=== PATIENT | female | born 1935 | race Caucasian/White ===

== ENCOUNTER 2022-10-05 17:11 | Outpatient (CLI) | payer MEDICARE, SELFPAY ==
[2022-10-05 17:06] LABS: Abs Immature Grans 4.55 10^3/uL (0.0-0.06); HCT 28.7 % (36.0-46.0); HGB 9.1 g/dL (11.2-15.7); MCHC 31.7 % (32.0-36.0); MCV 85 fL (80-95); MPV 9.9 fL (8.0-11.0); Nucleated RBC 0.2 % (0.0-0.3); Platelet Count 576 10^3/uL (130-400); RBC 3.37 10^6/uL (3.93-5.22); RDW 20.8 % (11.7-14.6); RDW-SD 60.7 fL
[2022-10-05 17:31] LABS: WBC 36.42 10^3/uL (4.4-10.8)
[2022-10-05 17:32] LABS: Absolute Basophil Count 0.36 10^3/uL (0.0-0.2); Absolute Eosinophil Count 0.36 10^3/uL (0.0-0.7); Absolute Lymphocyte Count 2.19 10^3/uL (1.2-3.4); Absolute Monocyte Count 4.01 10^3/uL (0.1-0.8); Bands % 2; Metamyelocytes % 7; Myelocytes % 5; Promyelocytes % 2
[2022-10-05 17:33] LABS: Anisocytosis 2+; Diff Comment Manual Differential
== END 2022-10-05 17:12 | disposition home or self-care (01) ==
LOC: LBO 17:15
PROVIDERS: Visit Provider Internal Medicine Hematology & Oncology
DX: C93.10 Chronic myelomonocytic leukemia not having achieved remission (principal)
CPT/HCPCS: 36415; 85025

== ENCOUNTER 2022-12-14 12:00 | Outpatient (RCR) | payer MEDICARE, BC, SELFPAY ==
[2022-12-11 12:02] LABS: Absolute Basophil Count 0.02 10^3/uL (0.0-0.2); Absolute Eosinophil Count 0.01 10^3/uL (0.0-0.7); Absolute Lymphocyte Count 0.92 10^3/uL (1.2-3.4); Absolute Neutrophil Count 1.36 10^3/uL (1.2-6.7); Basophils % 0.8; Eosinophils % 0.4; HCT 33.3 % (36.0-46.0); HGB 10.9 g/dL (11.2-15.7); Lymphocytes % 38.2; MCH 31.1 pg (27.0-33.0); MCHC 32.7 % (32.0-36.0); MCV 95 fL (80-95); MPV 11.7 fL (8.0-11.0); Monocytes % 4.1; Neutrophils % 56.5; RDW 19.1 % (11.7-14.6); RDW-SD 66.8 fL; WBC 2.41 10^3/uL (4.4-10.8)
[2022-12-11] MEDS: Normal Saline Flush 10 ML SYR IVP (12:03)
[2022-12-11 12:14] LABS: Platelet Count 53 10^3/uL (130-400)
[2022-12-11 12:20] LABS: ALT 14 U/L (14-59); AST 16 U/L (15-37); Albumin 3.7 g/dL (3.4-5.0); Alkaline Phosphatase 130 U/L (46-116); Anion Gap 9.1 mmol/L (3-11); BUN 31 mg/dL (7-18); Bilirubin, Total 0.7 mg/dL (0.2-1.0); CO2 25.9 mmol/L (21.0-32.0); CREATININE 0.7 mg/dL (0.55-1.02); Calcium 8.4 mg/dL (8.5-10.1); Chloride 108 mmol/L (98-107); Glucose 121 mg/dL (74-106); Sodium 143 mmol/L (136-145); Total Protein 7.3 g/dL (6.4-8.2); Uric Acid 1.9 mg/dL (2.6-6.0)
[2022-12-14] MEDS: Normal Saline Flush 10 ML SYR IVP (11:59)
[2022-12-14 12:28] LABS: Absolute Basophil Count 0.02 10^3/uL (0.0-0.2); Absolute Lymphocyte Count 0.74 10^3/uL (1.2-3.4); Absolute Monocyte Count 0.09 10^3/uL (0.1-0.8); Absolute Neutrophil Count 0.59 10^3/uL (1.2-6.7); Basophils % 1.4; HCT 32.4 % (36.0-46.0); HGB 10.3 g/dL (11.2-15.7); Lymphocytes % 51.4; MCH 30.8 pg (27.0-33.0); MCHC 31.8 % (32.0-36.0); MCV 97 fL (80-95); MPV 10.6 fL (8.0-11.0); Monocytes % 6.3; Neutrophils % 40.9; RBC 3.34 10^6/uL (3.93-5.22); RDW 18.7 % (11.7-14.6); RDW-SD 66.9 fL
[2022-12-14 12:59] LABS: WBC 1.44 10^3/uL (4.4-10.8)
[2022-12-14 13:00] LABS: Diff Comment Diff Reviewed; Platelet Count 28 10^3/uL (130-400); RBC Morphology Normal
== END 2022-12-19 23:59 | disposition home or self-care (01) ==
LOC: INF 12:00
PROVIDERS: Visit Provider Internal Medicine Hematology & Oncology
DX: C93.10 Chronic myelomonocytic leukemia not having achieved remission (principal); Z45.2 Encounter for adjustment and management of vascular access device
CPT/HCPCS: 36591; 80053; 84550; 85025

== ENCOUNTER → 2023-12-20 10:39 | Outpatient (BNVA) | payer MEDICARE, BC, SELFPAY | PROVIDERS: PCP Neuromusculoskeletal Medicine & OMM; Referring Provider Neuromusculoskeletal Medicine & OMM; Visit Provider Podiatrist | DX: B35.1 Tinea unguium (principal); L60.3 Nail dystrophy; M79.674 Pain in right toe(s); M79.675 Pain in left toe(s); I73.9 Peripheral vascular disease, unspecified | CPT/HCPCS: 11721 ==